=== PATIENT | male | born 1985 | race American Indian/Alaskan Native ===

== ENCOUNTER 2019-11-28 19:41 | Emergency (ER) | payer SELFPAY ==
[2019-11-28 20:34] VITALS: BP 155/93
--- NOTE | 2019-11-28 21:40 | Event Note ---
ED Screening Note Date of service: 11/28/19 Time: 21:38 ED Screening Note: 34 y o male presents with throat pain with difficulty swallowing, fever, chills muffled pain with opening mouth This initial assessment/diagnostic orders/clinical plan/treatment(s) is/are subject to change based on patients health status, clinical progression and re- assessment by fellow clinical providers in the ED. Further treatment and workup at subsequent clinical providers discretion. Patient/guardian urged not to elope from the ED as their condition may be serious if not clinically assessed and managed. Initial orders include: rapid strep Steroids, IM antibiotic acc eval
[2019-11-28] MEDS ORDERED: dexAMETHasone 20 MG/5 ML VIAL IV ONE (21:47)
[2019-11-28] MEDS ORDERED: diphenhydrAMINE 50 MG/ML VIAL IV ONE (21:47)
[2019-11-28] MEDS ORDERED: MORPHINE 2 MG/1 ML INJ IV ONE (21:47)
[2019-11-29] MEDS ORDERED: SODIUM CHLORIDE 0.9% 1000 ML 1,000 ML IV ONE (02:01)
[2019-11-29] MEDS ORDERED: MORPHINE 2 MG/1 ML INJ ONE (02:33)
[2019-11-29] MEDS ORDERED: dexAMETHasone 20 MG/5 ML VIAL ONE (02:33)
[2019-11-29 02:36] LABS: Basophils # (Auto) 0.2 K/mm3 (0.0-0.1); Basophils % (Auto) 0.9 % (0.0-1.8); Eosinophils # (Auto) 0.1 K/mm3 (0.0-0.4); Eosinophils % (Auto) 0.8 % (0.0-4.3); Hematocrit 46.1 % (35.5-45.6); Hemoglobin 14.8 gm/dl (11.8-15.2); Lymphocytes # (Auto) 2.8 K/mm3 (1.2-5.4); Lymphocytes % (Auto) 14.8 % (13.4-35.0); Mean Corpuscular HGB Conc 32 % (32-34); Mean Corpuscular Volume 84 fl (84-94); Monocytes # (Auto) 1.8 K/mm3 (0.0-0.8); Monocytes % (Auto) 9.4 % (0.0-7.3); Platelet Count 364 K/mm3 (140-440); Red Blood Count 5.47 M/mm3 (3.65-5.03); Red Cell Distribution Width 14.1 % (13.2-15.2)
[2019-11-29] MEDS ORDERED: IBUPROFEN ORAL LIQD 100 MG/5 ML ORAL.LIQD PO ONE (02:42)
--- NOTE | 2019-11-29 02:47 | Emergency Department Report ---
ED ENT HPI - General Chief complaint: Sore Throat Stated complaint: HEADACHE/CHEST PAIN/THROAT Time Seen by Provider: 11/29/19 01:59 Source: patient Mode of arrival: Ambulatory Limitations: No Limitations - History of Present Illness Initial comments: Mr. Cabral is a 34 y/o aam 34 y /o male presents with throat pain with difficulty swallowing, fever, chills , pt is tolerating po liquids. pt states pain is 5/10 exacerbated by swallowing. Pain is relieved by nothing tried. MD complaint: sore throat, other (pain with swallowing) Onset/Timin -: week(s) Location: throat Severity: moderate Severity scale (0 -10): 5 Quality: burning, sharp Consistency: constant Improves with: none Worsens with: swallowing Associated Symptoms: fever, pain with swallowing, sore throat. denies: discharge from ear, rhinorrhea - Related Data Previous Rx's Medication Instructions Recorded Last Taken Type Clindamycin [Clindamycin CAP] 300 mg PO Q6H 10 Days #40 capsule 11/29/19 Unknown Rx Ibuprofen [Motrin 800 MG tab] 800 mg PO Q8HR PRN #30 tablet 11/29/19 Unknown Rx dexAMETHasone [Decadron] 4 mg PO BID #6 tablet 11/29/19 Unknown Rx Allergies Allergy/AdvReac Type Severity Reaction Status Date / Time No Known Allergies Allergy Verified 11/29/19 02:34 ED Dental HPI - General Chief complaint: Sore Throat Stated complaint: HEADACHE/CHEST PAIN/THROAT Time Seen by Provider: 11/29/19 01:59 Source: patient Mode of arrival: Ambulatory Limitations: No Limitations - Related Data Previous Rx's Medication Instructions Recorded Last Taken Type Clindamycin [Clindamycin CAP] 300 mg PO Q6H 10 Days #40 capsule 11/29/19 Unknown Rx Ibuprofen [Motrin 800 MG tab] 800 mg PO Q8HR PRN #30 tablet 11/29/19 Unknown Rx dexAMETHasone [Decadron] 4 mg PO BID #6 tablet 11/29/19 Unknown Rx Allergies Allergy/AdvReac Type Severity Reaction Status Date / Time No Known Allergies Allergy Verified 11/29/19 02:34 ED Review of Systems ROS: Stated complaint: HEADACHE/CHEST PAIN/THROAT Other details as noted in HPI Constitutional: denies: chills, fever Eyes: denies: eye pain, eye discharge, vision change ENT: throat pain Respiratory: denies: cough, shortness of breath, wheezing Cardiovascular: denies: chest pain, palpitations Endocrine: no symptoms reported Gastrointestinal: denies: abdominal pain, nausea, diarrhea Genitourinary: denies: urgency, dysuria Musculoskeletal: denies: back pain, joint swelling, arthralgia Skin: denies: rash, lesions Neurological: denies: headache, weakness, paresthesias Psychiatric: denies: anxiety, depression Hematological/Lymphatic: denies: easy bleeding, easy bruising ED Past Medical Hx - Past Medical History Previous Medical History?: No - Surgical History Past Surgical History?: No - Social History Smoking Status: Never Smoker Substance Use Type: None - Medications Home Medications: Home Medications Medication Instructions Recorded Confirmed Last Taken Type Clindamycin [Clindamycin CAP] 300 mg PO Q6H 10 Days #40 capsule 11/29/19 Unknown Rx Ibuprofen [Motrin 800 MG tab] 800 mg PO Q8HR PRN #30 tablet 11/29/19 Unknown Rx dexAMETHasone [Decadron] 4 mg PO BID #6 tablet 11/29/19 Unknown Rx ED Physical Exam - General Limitations: No Limitations General appearance: alert, in no apparent distress - Head Head exam: Present: atraumatic, normocephalic - Eye Eye exam: Present: normal appearance, PERRL, EOMI Pupils: Present: normal accommodation - ENT ENT exam: Present: mucous membranes moist - Expanded ENT Exam Expanded Ear exam: Present: normal external inspection Mouth exam: Present: muffled voice, tongue normal. Absent: trismus Teeth exam: Absent: dental caries, gingival enlargement Throat exam: Positive: tonsillar erythema, tonsillomegaly, tonsillar exudate. Negative: R peritonsillar mass, L peritonsillar mass - Neck Neck exam: Present: normal inspection, full ROM, lymphadenopathy. Absent: tenderness, meningismus, thyromegaly - Respiratory Respiratory exam: Present: normal lung sounds bilaterally. Absent: respiratory distress, wheezes, stridor, chest wall tenderness - Cardiovascular Cardiovascular Exam: Present: regular rate, normal rhythm, normal heart sounds. Absent: systolic murmur, diastolic murmur, rubs, gallop - GI/Abdominal GI/Abdominal exam: Present: soft, normal bowel sounds. Absent: distended, tenderness, guarding, rebound, rigid, bruit, hernia - Rectal Rectal exam: Present: deferred - Extremities Exam Extremities exam: Present: normal inspection, full ROM, normal capillary refill. Absent: tenderness - Back Exam Back exam: Present: normal inspection, full ROM. Absent: tenderness - Neurological Exam Neurological exam: Present: alert, oriented X3, CN II-XII intact, normal gait - Psychiatric Psychiatric exam: Present: normal affect, normal mood - Skin Skin exam: Present: warm, dry, intact, normal color. Absent: rash ED Course Vital Signs 11/28/19 11/28/19 20:15 21:57 Temperature 99.8 F H 99.8 F H Pulse Rate 109 H 101 H Respiratory 18 18 Rate Blood Pressure 155/93 155/93 O2 Sat by Pulse 98 98 Oximetry ED Medical Decision Making - Lab Data Result diagrams: 11/29/19 00:00 11/29/19 00:00 Lab Results 11/28/19 11/28/19 11/29/19 Range/Units 21:58 Unknown 00:00 WBC 18.8 H (4.5-11.0) K/mm3 RBC 5.47 H (3.65-5.03) M/mm3 Hgb 14.8 (11.8-15.2) gm/dl Hct 46.1 H (35.5-45.6) % MCV 84 (84-94) fl MCH 27 L (28-32) pg MCHC 32 (32-34) % RDW 14.1 (13.2-15.2) % Plt Count 364 (140-440) K/mm3 Lymph % (Auto) 14.8 (13.4-35.0) % [place] % (Auto) 9.4 H (0.0-7.3) % Eos % (Auto) 0.8 (0.0-4.3) % Baso % (Auto) 0.9 (0.0-1.8) % Lymph # 2.8 (1.2-5.4) K/mm3 [place] # 1.8 H (0.0-0.8) K/mm3 Eos # 0.1 (0.0-0.4) K/mm3 Baso # 0.2 H (0.0-0.1) K/mm3 Seg Neutrophils % 74.1 H (40.0-70.0) % Seg Neutrophils # 14.0 H (1.8-7.7) K/mm3 Sodium (137-145) mmol/L Potassium (3.6-5.0) mmol/L Chloride (98-107) mmol/L Carbon Dioxide (22-30) mmol/L Anion Gap mmol/L BUN (9-20) mg/dL Creatinine (0.8-1.5) mg/dL Estimated GFR ml/min BUN/Creatinine Ratio % Glucose (75-100) mg/dL Calcium (8.4-10.2) mg/dL Total Bilirubin (0.1-1.2) mg/dL AST (5-40) units/L ALT (7-56) units/L Alkaline Phosphatase (35-129) units/L Total Protein (6.3-8.2) g/dL Albumin (3.9-5) g/dL Albumin/Globulin Ratio % Monoscreen Negative (Negative) Group A Strep Rapid Positive A (Negative) 11/29/19 Range/Units 00:00 WBC (4.5-11.0) K/mm3 RBC (3.65-5.03) M/mm3 Hgb (11.8-15.2) gm/dl Hct (35.5-45.6) % MCV (84-94) fl MCH (28-32) pg MCHC (32-34) % RDW (13.2-15.2) % Plt Count (140-440) K/mm3 Lymph % (Auto) (13.4-35.0) % [place] % (Auto) (0.0-7.3) % Eos % (Auto) (0.0-4.3) % Baso % (Auto) (0.0-1.8) % Lymph # (1.2-5.4) K/mm3 [place] # (0.0-0.8) K/mm3 Eos # (0.0-0.4) K/mm3 Baso # (0.0-0.1) K/mm3 Seg Neutrophils % (40.0-70.0) % Seg Neutrophils # (1.8-7.7) K/mm3 Sodium 141 (137-145) mmol/L Potassium 5.2 H (3.6-5.0) mmol/L Chloride 99.4 (98-107) mmol/L Carbon Dioxide 25 (22-30) mmol/L Anion Gap 22 mmol/L BUN 12 (9-20) mg/dL Creatinine 1.1 (0.8-1.5) mg/dL Estimated GFR > 60 ml/min BUN/Creatinine Ratio 11 % Glucose 102 H (75-100) mg/dL Calcium 10.3 H (8.4-10.2) mg/dL Total Bilirubin 0.50 (0.1-1.2) mg/dL AST 33 (5-40) units/L ALT 22 (7-56) units/L Alkaline Phosphatase 98 (35-129) units/L Total Protein 8.7 H (6.3-8.2) g/dL Albumin 4.5 (3.9-5) g/dL Albumin/Globulin Ratio 1.1 % Monoscreen (Negative) Group A Strep Rapid (Negative) - EKG Data EKG shows normal: sinus rhythm, axis, intervals, QRS complexes, ST-T waves Rate: normal - EKG Data When compared to previous EKG there are: previous EKG unavailable (no previous e kg ) Interpretation: normal EKG (NSR no ST [employer] [place], ekg interp by ed attending) - Radiology Data Radiology results: report reviewed, image reviewed Findings Reporting MD: Nabil Jean Dictation Time: November 29, 2019 04:22 Transcript ionist: Not available Media Relations Intern Date: CT neck w con INDICATION / CLINICAL INFORMATION: 34 years Male; r/o pertonsilar abscess. TECHNIQUE: Contiguous thin cut axial images obtained through the neck following IV contrast. Sagittal and coronal reconstructions performed by the [employer] st. All CT scans at this location are performed using CT dose reduction for ALARA by means of automated exposure control. COMPARISON: None available. FINDINGS: MUCOSAL SPACE: There is a focus of fluid signal within the left palatine soft tissues measuring 1.4 cm transverse by 1.7 cm sagittally. This finding would be a most consistent with a left peritonsillar abscess at. There is associated prominence of the palatine tonsils with milder narrowing of the airway at this level. LYMPH NODES: There is associated reactive lymphadenopathy, most notably within the left jugulodigastric region with the largest nodes measure approximately 1.5 cm in greatest short axis diameter. SALIVARY GLANDS: The parotid and submandibular glands demonstrate symmetric attenuation. The linear calcification along the medial aspect of the right submandibular region appears to be along the course of the right stylohyoid ligament. THYROID GLAND: Unremarkable. PARANASAL SINUSES: Visualized paranasal sinuses and mastoid air cells are essentially clear. SPINE: No significant abnormality of the cervical spine appreciated. VASCULAR STRUCTURES: There is a small focus of calcification along the posterior proximal left ICA without significant stenosis. Surrounding soft tissues are otherwise grossly normal. IMPRESSION: 1. 0 1.4 x 1.70 cm left peritonsillar abscess as detailed above. 2. There is cervical adenopathy which is likely reactive as described. The study was specified as stat and dictated emergently once notified at 4:19 AM Central standard time. - Medical Decision Making Patient offered transfer for ENT consult, however he is adamant about not being willing to transfer or been admitted to the hospital. Treatment to this point includes clindamycin 900 mg IV piggyback, Decadron 10 mg IV, normal saline 1 L IV, CT soft tissue neck: pending CBC: wbc:18.4, cmp: k: 5.2 this is likely due to mild dehydration, EKG noted: NSR, No ST [facility] [place], Plan: Symptoms are improved, patient is tolerating p.o. intake, there is no stridor or wheezing. No fever noted at this time. Plan will be to DC with clindamycin p.o. NSAIDs as needed pain Decadron p.o. follow-up with ENT in 1 to 2 days patient advised to follow-up today, patient given instructions to return to ED including worsening symptoms including inability to swallow, or stridor symptoms. Patient and have had the opportunity to ask and I have answered all questions to their satisfaction, including risks of signing out AMA, worsening condition and possib le . Patient demonstrates sound decision-making capacity at this time. He is alert and oriented x3. In no acute distress. He will be signing out AGAINST MEDICAL ADVICE at this time. His is at bedside and in concurrence. Critical care attestation.: If time is entered above; I have spent that time in minutes in the direct care of this critically ill patient, excluding procedure time. ED Disposition Clinical Impression: Strep throat Pharyngitis Qualifiers: Pharyngitis/tonsillitis etiology: streptococcus Qualified Code(s): J02.0 - Streptococcal pharyngitis Disposition: DC-07 LEFT AGAINST MED ADVICE Is pt being admited?: No Does the pt Need Aspirin: No Condition: Undetermined Instructions: Pharyngitis (ED), Peritonsillar Abscess (ED) Additional Instructions: Follow up with ENT Doctor cynthia , today. Given referral to Dr. Soila STALNEY, ENT Prescriptions: Clindamycin [Clindamycin CAP] 300 mg PO Q6H 10 Days #40 capsule dexAMETHasone [Decadron] 4 mg PO BID #6 tablet Ibuprofen [Motrin 800 MG tab] 800 mg PO Q8HR PRN #30 tablet PRN Reason: pain fever Referrals: LAZARA BAINS MD [Staff Physician] - [facility] Forms: AMA Form, Work/School Release Form(ED) Time of Disposition: 05:31
[2019-11-29 03:10] LABS: Alanine Aminotransferase 22 units/L (7-56); Albumin 4.5 g/dL (3.9-5); BUN/Creatinine Ratio 11; Blood Urea Nitrogen 12 mg/dL (9-20); Calcium 10.3 mg/dL (8.4-10.2); Hemolysis Index 19
--- NOTE | 2019-11-29 05:26 | Cat Scan Report ---
CT neck w con INDICATION / CLINICAL INFORMATION: 34 years Male; r/o pertonsilar abscess. TECHNIQUE: Contiguous thin cut axial images obtained through the neck following IV contrast. Sagittal and deshpande l reconstructions performed by the technologist. All CT scans at this location are performed using CT dose reduction for ALARA by means of automated exposure control. COMPARISON: None available. FINDINGS: MUCOSAL SPACE: There is a focus of fluid signal within the left palatine soft tissues measuring 1.4 c m transverse by 1.7 cm sagittally. This finding would be a most consistent with a left peritonsillar abscess at. There is associated prominence of the palatine tonsils with milder narrowing of the airwa y at this level. LYMPH NODES: There is associated reactive lymphadenopathy, most notably within the left jugulodigastr ic region with the largest nodes measure approximately 1.5 cm in greatest short axis diameter. SALIVARY GLANDS: The parotid and submandibular glands demonstrate symmetric attenuation. The linear c alcification along the medial aspect of the right submandibular region appears to be along the course of the right stylohyoid ligament. THYROID GLAND: Unremarkable. PARANASAL SINUSES: Visualized paranasal sinuses and mastoid air cells are essentially clear. SPINE: No significant abnormality of the cervical spine appreciated. VASCULAR STRUCTURES: There is a small focus of calcification along the posterior proximal left ICA wi thout significant stenosis. Surrounding soft tissues are otherwise grossly normal. IMPRESSION: 1. 0 1.4 x 1.70 cm left peritonsillar abscess as detailed above. 2. There is cervical adenopathy which is likely reactive as described. The study was specified as stat and dictated emergently once notified at 4:19 AM Central standard gabe ramirez. Signer Name: Nabil Jean MD Signed: 11/29/2019 5:22 AM Workstation Name: [id number]
== END 2019-11-29 05:40 | disposition left against medical advice (07) ==
LOC: ED 19:41
DX: J02.0 Streptococcal pharyngitis (principal); R51 Headache; Z79.899 Other long term (current) drug therapy
CPT/HCPCS: 36415; 70491; 80053; 85025; 86308; 87430; 93005; 93010; 96365; 96375; 99284; J1100; J2270; J7030; Q9967